=== PATIENT | male | born 2005 | race Caucasian/White ===

== ENCOUNTER 2024-09-10 14:03 | Emergency (ER) | payer OTHER, MEDICAID ==
[~2024-09-10] VITALS: Ht 170.2 cm; Wt 72.6 kg
[2024-09-10 14:39] VITALS: BP_SYST 139; PULSE 108; RESP 18; TEMP 97.9; O2SAT 98
[2024-09-10] MEDS: IBUPROFEN 800 MG TABLET PO ONE (15:54)
[2024-09-10] MEDS ORDERED: DICL20GE TP (16:20)
[2024-09-10] MEDS ORDERED: IBUP-1969 PO (16:20)
[2024-09-10 16:49] VITALS: BP_SYST 134; PULSE 100; RESP 18; TEMP 98; O2SAT 96
== END 2024-09-10 16:48 | disposition home or self-care (01) ==
LOC: SED 14:03
DX: S80.12XA Contusion of left lower leg, initial encounter (principal); M25.572 Pain in left ankle and joints of left foot; V89.2XXA Person injured in unspecified motor-vehicle accident, traffic, initial encounter; Y93.89 Activity, other specified; Y92.89 Other specified places as the place of occurrence of the external cause; Y99.8 Other external cause status
CPT/HCPCS: 73590; 99284